=== PATIENT | female | born 1975 | race Caucasian/White ===

== ENCOUNTER → 2018-12-29 08:38 | Outpatient (CLI) | payer OTHER, SELFPAY | PROVIDERS: Visit Provider Physician Assistant | DX: R68.89 Other general symptoms and signs (principal) | CPT/HCPCS: 87400 ==

== ENCOUNTER → 2020-11-01 08:14 | Outpatient (CLI) | payer OTHER, SELFPAY ==
[2020-11-01 09:21] LABS: Hematocrit 39.8 % (36-46); Hemoglobin 12.9 g/dL (12.0-16.0); Mean Corpuscular HGB Conc 32.3 % (30-36); Mean Corpuscular Hemoglobin 27.8 PG (26-34); Platelet Count 281 X10^3/uL (150-400); Red Blood Cell Count 4.63 X10^6/uL (4.0-5.2); Red Cell Distribution Width 14.1 % (11.6-14.8); White Blood Cell Count 6.8 X10^3/uL (4.5-11.0)
[2020-11-01 09:53] LABS: Alanine Aminotransferase 21 IU/L (<35); Albumin 4.4 g/dL (3.5-5.0); Albumin Globulin Ratio 1.1 (1.0-2.8); Alkaline Phosphatase 89 U/L (38-126); Aspartate Aminotransferase 29 IU/L (14-36); BUN Creatinine Ratio 16.9 (6-22); Bilirubin Total 0.6 mg/dL (0.2-1.3); Blood Urea Nitrogen 12 mg/dL (7-17); Calcium 8.9 mg/dL (8.4-10.2); Carbon Dioxide 31 mmol/L (22-32); Chloride 101 mmol/L (98-107); Cholesterol 216 mg/dL (140-199); Estimated Glomerular Filt Rate > 60.0 mL/min (>60); Globulin 3.9 g/dL (1.7-4.1); Glucose 103 mg/dL (70-100); HDL Cholesterol 59 mg/dL (40-60); HEMOLYSIS 19 (0-50); LDL Cholesterol Calculated 138 mg/dL (<100); Potassium 3.9 mmol/L (3.4-5.1); Sodium 138 mmol/L (137-145); Total Protein 8.3 g/dL (6.3-8.2); Triglycerides 95 mg/dL (35-150)
[2020-11-01 10:24] LABS: TSH w/ Reflex to FT4 0.82 uIU/mL (0.47-4.68)
== END ==
PROVIDERS: PCP Registered Nurse Diabetes Educator; Referring Provider Registered Nurse Diabetes Educator; Visit Provider Registered Nurse Diabetes Educator
DX: E66.9 Obesity, unspecified (principal); I10 Essential (primary) hypertension
CPT/HCPCS: 36415; 80053; 80061; 84443; 85027

== ENCOUNTER → 2021-01-28 08:51 | Outpatient (CLI) | payer OTHER, SELFPAY ==
[2021-01-28 11:14] LABS: BUN Creatinine Ratio 12.8 (6-22); Blood Urea Nitrogen 12 mg/dL (7-17); Calcium 10.1 mg/dL (8.4-10.2); Carbon Dioxide 28 mmol/L (22-32); Chloride 99 mmol/L (98-107); Estimated Glomerular Filt Rate > 60.0 mL/min (>60); Glucose 128 mg/dL (70-100); HEMOLYSIS < 15 (0-50); Potassium 3.8 mmol/L (3.4-5.1); Sodium 138 mmol/L (137-145)
== END ==
PROVIDERS: PCP Registered Nurse Diabetes Educator; Referring Provider Registered Nurse Diabetes Educator; Visit Provider Registered Nurse Diabetes Educator
DX: I10 Essential (primary) hypertension (principal)
CPT/HCPCS: 36415; 80048

== ENCOUNTER → 2022-04-26 07:07 | Outpatient (CLI) | payer OTHER, SELFPAY ==
[2022-04-26 08:01] LABS: Hemoglobin 12.7 g/dL (12.0-16.0); Mean Corpuscular HGB Conc 33.3 % (30-36); Mean Corpuscular Hemoglobin 29.1 PG (26-34); Mean Corpuscular Volume 87.2 fL (80-100); Platelet Count 285 X10^3/uL (150-400); Red Blood Cell Count 4.36 X10^6/uL (4.0-5.2); Red Cell Distribution Width 14.3 % (11.6-14.8)
[2022-04-26 08:25] LABS: Alanine Aminotransferase 18 IU/L (<35); Albumin 4.5 g/dL (3.5-5.0); Albumin Globulin Ratio 1.5 (1.0-2.8); Alkaline Phosphatase 82 U/L (38-126); Aspartate Aminotransferase 26 IU/L (14-36); BUN Creatinine Ratio 15.3 (6-22); Bilirubin Total 0.6 mg/dL (0.2-1.3); Blood Urea Nitrogen 13 mg/dL (7-17); Calcium 9.3 mg/dL (8.4-10.2); Carbon Dioxide 31 mmol/L (22-32); Chloride 98 mmol/L (98-107); Cholesterol 207 mg/dL (140-199); Estimated Glomerular Filt Rate > 60 mL/min (>60); Glucose 105 mg/dL (70-100); HDL Cholesterol 77 mg/dL (40-60); HEMOLYSIS < 15 (0-50); LDL Cholesterol Calculated 106 mg/dL (<100); Potassium 3.5 mmol/L (3.4-5.1); Sodium 137 mmol/L (137-145); Total Protein 7.5 g/dL (6.3-8.2); Triglycerides 122 mg/dL (35-150)
[2022-04-26 09:25] LABS: TSH w/ Reflex to FT4 1.58 uIU/mL (0.47-4.68)
== END ==
PROVIDERS: PCP Registered Nurse Diabetes Educator; Referring Provider Registered Nurse Diabetes Educator; Visit Provider Registered Nurse Diabetes Educator
DX: I10 Essential (primary) hypertension (principal); E78.5 Hyperlipidemia, unspecified; R73.01 Impaired fasting glucose
CPT/HCPCS: 36415; 80053; 80061; 84443; 85027

== ENCOUNTER → 2023-05-03 07:01 | Outpatient (CLI) | payer OTHER, SELFPAY ==
[2023-05-03 07:59] LABS: Hematocrit 36.2 % (36-46); Hemoglobin 12.1 g/dL (12.0-16.0); Mean Corpuscular HGB Conc 33.4 % (30-36); Mean Corpuscular Hemoglobin 28.7 PG (26-34); Platelet Count 316 X10^3/uL (150-400); Red Blood Cell Count 4.21 X10^6/uL (4.0-5.2); Red Cell Distribution Width 15.4 % (11.6-14.8); White Blood Cell Count 7.3 X10^3/uL (4.5-11.0)
[2023-05-03 08:25] LABS: Alanine Aminotransferase 22 IU/L (<35); Albumin 4.1 g/dL (3.5-5.0); Albumin Globulin Ratio 1.3 (1.0-2.8); Alkaline Phosphatase 84 U/L (38-126); Aspartate Aminotransferase 24 IU/L (14-36); BUN Creatinine Ratio 15.7 (6-22); Bilirubin Total 0.5 mg/dL (0.2-1.3); Blood Urea Nitrogen 17 mg/dL (7-17); Calcium 9.2 mg/dL (8.4-10.2); Carbon Dioxide 32 mmol/L (22-32); Chloride 96 mmol/L (98-107); Cholesterol 178 mg/dL (140-199); Estimated Glomerular Filt Rate > 60 mL/min (>60); Globulin 3.2 g/dL (1.7-4.1); Glucose 97 mg/dL (70-100); HDL Cholesterol 66 mg/dL (40-60); HEMOLYSIS < 15 (0-50); LDL Cholesterol Calculated 92 mg/dL (<100); Sodium 136 mmol/L (137-145); Total Protein 7.3 g/dL (6.3-8.2); Triglycerides 98 mg/dL (35-150)
[2023-05-03 08:59] LABS: TSH w/ Reflex to FT4 1.26 uIU/mL (0.47-4.68)
[2023-05-04 04:09] LABS: Labcorp Hemoglobin (Hb) A1c 5.9 % (4.8-5.6)
== END ==
PROVIDERS: PCP Registered Nurse Diabetes Educator; Referring Provider Registered Nurse Diabetes Educator; Visit Provider Registered Nurse Diabetes Educator
DX: E78.5 Hyperlipidemia, unspecified (principal); I10 Essential (primary) hypertension; R73.01 Impaired fasting glucose
CPT/HCPCS: 36415; 80053; 80061; 83036; 84443; 85027

== ENCOUNTER 2025-05-18 16:09 | Emergency (ER) | payer OTHER, SELFPAY ==
[2025-05-18 16:32] VITALS: BP 125/79; PULSE 80; RESP 16; TEMP 36.8; O2SAT 100; BMI 24.7
--- NOTE | 2025-05-18 17:21 | EKG_ITS ---
[id number] [address] Test Date: 2025-05-18 Pat Name: Azucena Alcantar Department: [facility] Room: Gender: Female [employer]: : 1975 Requested By: Order Number: [id number] Reading MD: Jonathan Little Measurements Intervals [place] Rate: 75 P: 41 [place]: 138 QRS: 24 QRSD: 88 T: 47 QT: 386 QTc: 431 Interpretive Statements Normal sinus rhythm Electronically Signed On 05-20-2025 13:36:07 PDT by Jonathan Little
--- NOTE | 2025-05-18 17:21 | DI.RAD.S_ITS ---
PROCEDURE: XR CHEST 1V INDICATIONS: Chest Pain TECHNIQUE: One view of the chest was acquired. COMPARISON: None. FINDINGS: Surgical changes and devices: None. Lungs and pleura: Lungs are clear. No pleural effusions or pneumothorax. Mediastinum: Mediastinal contours appear normal. Heart size is normal. Bones and chest wall: No suspicious bony lesions. Overlying soft tissues appear unremarkable. IMPRESSION: No acute cardiopulmonary abnormality is seen. Dictated by: Tanner Mahajan M.D. on 05/18/2025 at 18:00 Approved by: Tanner Mahajan M.D. on 05/18/2025 at 18:01
--- NOTE | 2025-05-19 06:17 | ED_ITS ---
HPI - Dizziness General Chief Complaint: Dizziness Stated Complaint: headache,syncope ,blurry vision, ear ringing Time Seen by Provider: 05/18/25 18:03 Related Data Home Medications ?Medication ?Instructions ?Recorded ?Confirmed bimatoprost 0.03 % drops with 1 applic topical DAILY 0 05/18/25 05/18/25 applicator, eyelash base Previous Rx's ?Medication ?Instructions ?Recorded valsartan 320 1 tab PO DAILY #90 tabs 05/04 04/25 mg-hydrochlorothiazide 25 mg tablet semaglutide (weight loss) 0.25 0.25 mg (0.5 mL) SUBCUT QWEEK #2 mL 05/08/23 mg/0.5 mL subcutaneous pen injector Allergies Allergy/AdvReac Type Severity Reaction Status Date / Time No Known Drug Allergies Allergy Verified 05/18/25 09:08 Patient History Medical History Anxiety Binge eating disorder Chicken pox (~1981) Depression (~2009) Dyslipidemia History of skin cancer (~2003) Hypertension Impaired fasting blood sugar Obesity Surgical History Anesthesia History of ankle surgery (~2005) History of section (~2009) Family History Father Skin cancer Hypertension Mother Hypertension Rheumatoid arthritis Sister Hypertension Grandfather Stroke Grandmother Cancer Grandfather Cancer Smoking Status: Never smoker Exam Initial Vital Signs Initial Vital Signs: Vital Signs Temperature 98.2 F 05/18/25 16:32 Pulse Rate 80 05/18/25 16:32 Respiratory Rate 16 05/18/25 16:32 Blood Pressure 125/79 05/18/25 16:32 Pulse Oximetry 100 05/18/25 16:32 Oxygen Delivery Method Room Air 05/18/25 16:32 Course Orders Ordered: Discontinued Medications Aspirin (Aspirin 81 Mg Chew Tab) 324 mg PO NOW ONE Stop: 05/18/25 17:21 Lactated Ringer's (Lactated Ringers) 1,000 mls @ 1,000 mls/hr IV BOLUS ONE Stop: 05/18/25 19:13 Discharge Plan Departure Patient Disposition: Left Without Being Seen Clinical Impression: Patient left before evaluation by physician Prescriptions: No Action bimatoprost 0.03 % drops with applicator 1 applic topical DAILY semaglutide (weight loss) 0.25 mg/0.5 mL pen injector 0.25 mg SUBCUT QWEEK Qty: 2 3RF Rx Instructions: administer 0.25 mg once weekly x 4 weeks; increase dose to 0.5 mg once weekly after 4 weeks valsartan-hydrochlorothiazide 320-25 mg tablet 1 tab PO DAILY Qty: 90 3RF
== END 2025-05-18 19:50 | disposition left against medical advice (07) ==
PROVIDERS: Emergency Provider Family Medicine; PCP Registered Nurse Diabetes Educator
DX: R42 Dizziness and giddiness (principal); R51.9 Headache, unspecified; H53.8 Other visual disturbances; R55 Syncope and collapse
CPT/HCPCS: 71045; 93005; 99281

== ENCOUNTER 2025-05-19 08:38 | Emergency (ER) | payer OTHER, SELFPAY ==
[2025-05-19] VITALS (32 sets, daily range): BP systolic 99–160; BP diastolic 57–93; PULSE 69–92; RESP 10–28; TEMP 36.3; O2SAT 93–100; BMI 24.7
--- NOTE | 2025-05-19 09:04 | DI.CT.S_ITS ---
PROCEDURE: CT ANGIO HEAD AND NECK INDICATIONS: Dizzy/ataxia TECHNIQUE: After the administration of intravenous contrast, 1 mm thick sections acquired from the aortic arch through the [place] of [place]. 3-dimensional xfojggf-qufyalzea-ytanvviltz (MIP) and/or volume rendering reformats were acquired of the central intracranial vasculature and neck separately. For radiation dose reduction, the following was used: automated exposure control, adjustment of mA and/or kV according to patient size. COMPARISON: [facility], CT, CT HEAD/BRAIN WO CON, 05/19/2025, 9:10. FINDINGS: Image quality: Image quality degraded by patient motion artifact. Cerebral CT Angiogram: Internal carotid arteries: No acute findings. Intracranial ICA are patent with no significant stenosis. No occlusion. No aneurysm. Anterior cerebral arteries: Unremarkable. No significant stenosis. No occlusion. No aneurysm. Middle cerebral arteries: Unremarkable. No significant stenosis. No occlusion. No aneurysm. Posterior cerebral arteries: Unremarkable. No significant stenosis. No occlusion. No aneurysm. Basilar artery: Unremarkable. No significant stenosis. No occlusion. No aneurysm. Vertebral arteries: Unremarkable as visualized. Dural venous sinuses: Unremarkable given phase of enhancement. Other: 9 millimeter hyperdense lesion in the medial aspect of the right cerebellar hemisphere may represent of a cavernous angioma. Central hypoattenuating lesion involving the cervical medullary junction of the brainstem and upper spinal cord that could represent of syrinx, infarct or cystic/necrotic mass. Neck CT Angiogram: Internal carotid arteries: Unremarkable. No significant stenosis. No dissection or occlusion. Common carotid arteries: Unremarkable. No significant stenosis. No dissection or occlusion. External carotid arteries: Unremarkable. No occlusion. Vertebral arteries: Unremarkable. No significant stenosis. No dissection or occlusion. Aortic Arch and Mediastinum: Partially visualized aortic arch unremarkable without evidence of aneurysm. Origins of the great vessels unremarkable. Other: Arterial phase soft tissues of the neck and chest are unremarkable. IMPRESSION: Image quality degraded by patient motion artifact. No large vessel occlusion, significant vascular stenosis, vascular dissection or aneurysm within limitations of the study. 9 millimeter hyperdense lesion in the right cerebellar hemisphere which may represent a cavernous angioma. Recommend MRI of the brain with without contrast. Hypoattenuating lesion involving the cervicomedullary junction of the brainstem/spinal cord which could reflect syrinx, infarct or cystic/necrotic mass. Recommend MRI of the brain with and without contrast. Any quantitative measurements of stenosis were performed using NASCET criteria. Dictated by: Vashti Mir MD, PhD on 05/19/2025 at 9:32 Approved by: Vashti Mir MD, PhD on 05/19/2025 at 9:42
--- NOTE | 2025-05-19 09:04 | DI.CT.S_ITS ---
PROCEDURE: CT HEAD/BRAIN WO CON INDICATIONS: Dizzy/ataxia TECHNIQUE: Noncontrast 4.5 mm thick angled axial sections acquired from the foramen magnum to the vertex, with coronal and sagittal reformats. For radiation dose reduction, the following was used: automated exposure control, adjustment of mA and/or kV according to patient size. COMPARISON: None. FINDINGS: Image quality: Diagnostic. CSF spaces: Basal cisterns are patent. No extra-axial fluid collections. Ventricles are prominent in size. Brain: No midline shift. No intracranial mass effect or hemorrhage. Mild periventricular white matter small vessel chronic ischemic changes are seen. Hallman-white matter interface is normal. Focal calcification within medial aspect of right cerebellum adjacent to the 4th ventricle is seen. Skull and face: Calvarium and visualized facial bones are intact, without suspicious lesions. Sinuses: Visualized sinuses and mastoids are clear. IMPRESSION: No acute intracranial bleed or midline shift. Prominent size of the ventricles which can be seen associated with normal pressure hydrocephalus suggest clinical correlation. Mild white matter small vessel chronic ischemic changes. Focal calcification in right cerebellum which may represent sequelae from old infection or ischemia. Dictated by: Neil Caba M.D. on 05/19/2025 at 8:30 Approved by: Neil Caba M.D. on 05/19/2025 at 8:33
--- NOTE | 2025-05-19 09:04 | EKG_ITS ---
[address] [address] Test Date: 2025-05-19 Pat Name: Azucena Alcantar Department: Room: Gender: Female [employer]: DENIS : 1975 Requested By: Order Number: [id number] Reading MD: Jonathan Little Measurements Intervals [place] Rate: 77 P: 47 ND: 154 QRS: 40 QRSD: 90 T: 71 QT: 380 QTc: 430 Interpretive Statements Normal sinus rhythm Minimal voltage criteria for LVH, may be normal variant ( [place] product ) Electronically Signed On 05-20-2025 13:45:15 PDT by Jonathan Little
--- NOTE | 2025-05-19 09:07 | ED.DIZZY ---
HPI - Dizziness <Braulio Thayer MD - Last Filed: 06/02/25 09:09> General Chief Complaint: Dizziness Stated Complaint: Blurry vision, headaches, Loss of consciousness Time Seen by Provider: 05/19/25 08:43 Source: patient Mode of arrival: Ambulatory History of Present Illness HPI Narrative: Patient here for off and on episodes of dizziness occipital headache pulsating sensation to the ears, feeling off balance for the past 3 or 4 weeks. Worsening in the past 4 days. No chest pain no palpitations. No prior history of heart attack strokes or diabetes. No history arrhythmia. No primary family history of stroke. Patient in no distress. Steady self gait from waiting to room 4. No recent illness. No black or bloody stools. No nausea or vomiting. No prior history of migraine headaches. No new medications. Related Data Home Medications ?Medication ?Instructions ?Recorded ?Confirmed bimatoprost 0.03 % drops with 1 applic topical DAILY 05/18/25 06/01/25 applicator, eyelash base Held on 05/22/25. Instructions: Provider's Order acetaminophen 325 mg capsule 650 mg PO ONCE PRN 05/31/25 06/01/25 bisacodyl 10 mg rectal suppository 10 mg MI DAILY PRN 05/31/25 06/01/25 (Dulcolax (bisacodyl)) bisacodyl 5 mg tablet,delayed 10 mg PO ONCE 05/31/25 06/01/25 release carboxymethylcellulose sodium 0.5 drp EYE-BOTH 05/31/25 06/01/25 % eye drops (Refresh Tears) chlorpromazine 25 mg tablet 25 mg PO TID PRN 05/31/25 06/01/25 melatonin 3 mg tablet 3 mg PO BEDTIME PRN 05/31/25 06/01/25 methocarbamol 500 mg tablet 500 mg PO Q6H 05/31/25 06/01/25 ondansetron HCl 4 mg tablet 4 mg PO Q8H 05/31/25 06/01/25 oxycodone 5 mg tablet 5 mg PO Q4H PRN 05/31/25 06/01/25 pantoprazole 20 mg tablet,delayed 20 mg PO DAILY 05/31/25 06/01/25 release polyethylene glycol 3350 17 17 g PO DAILY 05/31/25 06/01/25 gram/dose oral powder sennosides 8.6 mg capsule (senna) 8.6 mg PO BID 05/31/25 06/01/25 Thyroid Support-Pure PO 06/01/25 06/01/25 Vitamin E PO 06/01/25 06/01/25 potassium chloride 20 mEq 20 meq PO DAILY 06/01/25 06/01/25 tablet,extended release Previous Rx's ?Medication ?Instructions ?Recorded valsartan 320 1 tab PO DAILY #90 tabs 05/19/22 mg-hydrochlorothiazide 25 mg tablet semaglutide (weight loss) 0.25 0.25 mg (0.5 mL) SUBCUT QWEEK #2 mL 05/08/23 mg/0.5 mL subcutaneous pen injector Held on 05/31/25. Instructions: Home Medication placed on hold at Doctor's office Allergies Allergy/AdvReac Type Severity Reaction Status Date / Time No Known Drug Allergies Allergy Verified 05/18/25 09:08 Review of Systems <Braulio Thayer MD - Last Filed: 06/02/25 09:09> Review of Systems Narrative: GENERAL: Negative chills, fatigue, malaise, fever, sweats. HEENT: Negative sinus pain, ear pain, sore throat RESPIRATORY: Negative dyspnea, cough CARDIOVASCULAR: Negative chest pain, palpitations GASTROINTESTINAL: Negative vomiting, nausea, abdominal pain : Negative dysuria, frequency, hematuria MUSCULOSKELETAL: Negative muscle or bony pain SKIN: Negative rash, skin lesions NEUROLOGIC: Negative weakness, numbness fast exam is negative. Finger-nose intact. Clear speech no facial droop light touch intact to bilateral face hands and legs ROS Unobtainable: All systems reviewed & are unremarkable except as noted in HPI and below Patient History <Braulio Thayer MD - Last Filed: 06/02/25 09:09> Medical History Anxiety Binge eating disorder Chicken pox (~1981) Depression (~2009) Dyslipidemia History of skin cancer (~2003) Hypertension Impaired fasting blood sugar Obesity Surgical History Anesthesia History of ankle surgery (~2005) History of section (~2009) Family History Father Skin cancer Hypertension Mother Hypertension Rheumatoid arthritis Sister Hypertension Grandfather Stroke Grandmother Cancer Grandfather Cancer Exam <Braulio Thayer MD - Last Filed: 06/02/25 09:09> Narrative Exam Narrative: GENERAL: in no distress, not toxic not dyspneic HEAD: Normocephalic. EYES: Pupils equal round ENT: Mucous membranes moist. NECK: Trachea midline. CARDIOVASCULAR: Regular rate and rhythm RESPIRATORY: Clear to auscultation. Breath sounds equal bilaterally. No wheezes, rales, or rhonchi. GASTROINTESTINAL: Abdomen soft, non-tender EXTREMITIES: No gross deformities. BACK: No flank tenderness. NEURO: AOx4. Clear speech no facial droop light touch intact bilateral face hands and legs. Strong equal protection mgr. Fast exam is negative SKIN: Warm and dry PSYCH: Not anxious, is cooperative Initial Vital Signs Initial Vital Signs: Vital Signs Pulse Rate 81 05/19/25 08:42 Blood Pressure 125/87 05/19/25 08:42 Pulse Oximetry 99 05/19/25 08:42 <Praneeth Thapa MD - Last Filed: 05/19/25 19:21> Initial Vital Signs Initial Vital Signs: Vital Signs Pulse Rate 81 05/19/25 08:42 Blood Pressure 125/87 05/19/25 08:42 Pulse Oximetry 99 05/19/25 08:42 <Star Antonio DO - Last Filed: 05/21/25 08:37> Initial Vital Signs Initial Vital Signs: Vital Signs Pulse Rate 81 05/19/25 08:42 Blood Pressure 125/87 05/19/25 08:42 Pulse Oximetry 99 05/19/25 08:42 <Luis Raya MD - Last Filed: 05/22/25 15:52> Initial Vital Signs Initial Vital Signs: Vital Signs Pulse Rate 81 05/19/25 08:42 Blood Pressure 125/87 05/19/25 08:42 Pulse Oximetry 99 05/19/25 08:42 Scores <Braulio Thayer MD - Last Filed: 06/02/25 09:09> NIH Stroke Scale Level of Conciousness: Alert, keenly responsive Ask month/age: Answers both questions correctly. Open/close eyes, close hand: Performs both tasks correctly Best gaze horizontal: Normal Visual [place]: No visual loss Facial palsy: Normal symetrical movement Left arm drift: No drift for full 10 sec Right arm drift: No drift for full 10 sec Left leg drift: No drift for full 5 sec Right leg drift: No drift for full 5 sec Limb ataxia: Absent Sensory on face/arms/legs: Normal, no sensory loss Best language: No aphasia, normal Dysarthria: Normal Extinction or inattention: No abnormality Total NIH Stroke scale score: 0 <Praneeth Thapa MD - Last Filed: 05/19/25 19:21> NIH Stroke Scale Total NIH Stroke scale score: 0 <Star Antonio DO - Last Filed: 05/21/25 08:37> NIH Stroke Scale Total NIH Stroke scale score: 0 <Luis Raya MD - Last Filed: 05/22/25 15:52> NIH Stroke Scale Total NIH Stroke scale score: 0 Course <Braulio Thayer MD - Last Filed: 06/02/25 09:09> Orders Ordered: Discontinued Medications Acetaminophen (Acetaminophen 325 Mg Tablet) 975 mg PO NOW ONE Stop: 05/19/25 14:37 Last Admin: 05/19/25 14:40 Dose: 975 mg Documented By: MARYAM Acetaminophen (Acetaminophen 325 Mg Tablet) 975 mg PO NOW ONE Stop: 05/20/25 10:36 Last Admin: 05/20/25 10:40 Dose: 975 mg Documented By: TRACY Acetaminophen (Acetaminophen 325 Mg Tablet) 975 mg PO Q8HR PRN PRN Reason: Pain, Mild (1-3) Last Admin: 05/22/25 19:58 Dose: 975 mg Documented By: Admin: 05/22/25 08:56 Dose: 975 mg Documented By: Admin: 05/21/25 07:55 Dose: 975 mg Documented By: Admin: 05/20/25 18:21 Dose: 975 mg Documented By: CORNELL Alprazolam (Alprazolam 0.25 Mg Tablet) 0.5 mg PO NOW ONE Stop: 05/19/25 17:45 Last Admin: 05/19/25 17:50 Dose: 0.5 mg Documented By: MARYAM Alprazolam (Alprazolam 0.25 Mg Tablet) 0.5 mg PO NOW ONE Stop: 05/20/25 07:34 Last Admin: 05/20/25 07:46 Dose: 0.5 mg Documented By: TRACY Alprazolam (Alprazolam 0.25 Mg Tablet) 0.25 mg PO NOW ONE Stop: 05/21/25 02:11 Last Admin: 05/21/25 02:27 Dose: 0.25 mg Documented By: Alprazolam (Alprazolam 0.25 Mg Tablet) 0.25 mg PO NOW ONE Stop: 05/21/25 02:25 Last Admin: 05/21/25 02:28 Dose: 0.25 mg Documented By: Alprazolam (Alprazolam 0.25 Mg Tablet) 0.5 mg PO Q6H PRN PRN Reason: Anxiety Last Admin: 05/22/25 18:53 Dose: 0.5 mg Documented By: Admin: 05/22/25 10:35 Dose: 0.5 mg Documented By: Admin: 05/21/25 22:43 Dose: 0.5 mg Documented By: Admin: 05/21/25 12:40 Dose: 0.5 mg Documented By: LEE Alprazolam (Alprazolam 0.25 Mg Tablet) 1 mg PO NOW ONE Stop: 05/22/25 16:35 Last Admin: 05/22/25 19:01 Dose: Not Given Documented By: LEE Cefdinir (Cefdinir 300 Mg Capsule) 300 mg PO NOW ONE Stop: 05/20/25 08:41 Last Admin: 05/20/25 08:48 Dose: 300 mg Documented By: TRACY Cefdinir (Cefdinir 300 Mg Capsule) 300 mg PO BID RAMY Last Admin: 05/22/25 08:55 Dose: 300 mg Documented By: Admin: 05/21/25 21:37 Dose: 300 mg Documented By: Admin: 05/21/25 08:03 Dose: 300 mg Documented By: Admin: 05/20/25 21:15 Dose: 300 mg Documented By: CORNELL Cephalexin HCl (Cephalexin 250 Mg Capsule) 500 mg PO BID RAMY Cephalexin HCl (Cephalexin 250 Mg Capsule) 500 mg PO BID RAMY Last Admin: 05/19/25 21:47 Dose: Not Given Documented By: Admin: 05/19/25 19:41 Dose: 500 mg Documented By: Sodium Chloride (Normal Saline 0.9%) 1,000 mls @ 1,000 mls/hr IV BOLUS ONE Stop: 05/19/25 10:05 Last Infusion: 05/19/25 11:27 Dose: Infused Documented By: Admin: 05/19/25 09:26 Dose: 1,000 mls/hr Documented By: MARYAM Sodium Chloride (Normal Saline 0.9%) 1,000 mls @ 500 mls/hr IV BOLUS ONE Stop: 05/22/25 15:56 Last Infusion: 05/22/25 18:15 Dose: Infused Documented By: Admin: 05/22/25 14:04 Dose: 500 mls/hr Documented By: RB Morphine Sulfate (Morphine 4 Mg/Ml Inj) 4 mg IV NOW ONE Stop: 05/21/25 14:41 Last Admin: 05/21/25 14:43 Dose: 4 mg Documented By: LEE Non-Formulary Medication (Valsartan-Hctz) 1 tab PO QPM RAMY Valsartan-Hctz 320 (Mg/25 Mg Tab) 1 tab PO BEDTIME RAMY Vital Signs Vital signs: Vital Signs - 8 hr 05/22/25 11:37 05/22/25 11:38 05/22/25 11:38 Temperature 98.2 F Pulse Rate 91 H 85 Blood Pressure 125/85 Pulse Oximetry 98 97 Oxygen Delivery Method 05/22/25 14:05 05/22/25 14:05 Temperature 98.3 F Pulse Rate 90 Blood Pressure 120/68 Pulse Oximetry 97 Oxygen Delivery Method Room Air <Praneeth Thapa MD - Last Filed: 05/19/25 19:21> Orders Ordered: Discontinued Medications Acetaminophen (Acetaminophen 325 Mg Tablet) 975 mg PO NOW ONE Stop: 05/19/25 14:37 Last Admin: 05/19/25 14:40 Dose: 975 mg Documented By: MARYAM Acetaminophen (Acetaminophen 325 Mg Tablet) 975 mg PO NOW ONE Stop: 05/20/25 10:36 Last Admin: 05/20/25 10:40 Dose: 975 mg Documented By: TRACY Acetaminophen (Acetaminophen 325 Mg Tablet) 975 mg PO Q8HR PRN PRN Reason: Pain, Mild (1-3) Last Admin: 05/22/25 19:58 Dose: 975 mg Documented By: Admin: 05/22/25 08:56 Dose: 975 mg Documented By: Admin: 05/21/25 07:55 Dose: 975 mg Documented By: Admin: 05/20/25 18:21 Dose: 975 mg Documented By: CORNELL Alprazolam (Alprazolam 0.25 Mg Tablet) 0.5 mg PO NOW ONE Stop: 05/19/25 17:45 Last Admin: 05/19/25 17:50 Dose: 0.5 mg Documented By: MARYAM Alprazolam (Alprazolam 0.25 Mg Tablet) 0.5 mg PO NOW ONE Stop: 05/20/25 07:34 Last Admin: 05/20/25 07:46 Dose: 0.5 mg Documented By: TRACY Alprazolam (Alprazolam 0.25 Mg Tablet) 0.25 mg PO NOW ONE Stop: 05/21/25 02:11 Last Admin: 05/21/25 02:27 Dose: 0.25 mg Documented By: Alprazolam (Alprazolam 0.25 Mg Tablet) 0.25 mg PO NOW ONE Stop: 05/21/25 02:25 Last Admin: 05/21/25 02:28 Dose: 0.25 mg Documented By: Alprazolam (Alprazolam 0.25 Mg Tablet) 0.5 mg PO Q6H PRN PRN Reason: Anxiety Last Admin: 05/22/25 18:53 Dose: 0.5 mg Documented By: Admin: 05/22/25 10:35 Dose: 0.5 mg Documented By: Admin: 05/21/25 22:43 Dose: 0.5 mg Documented By: Admin: 05/21/25 12:40 Dose: 0.5 mg Documented By: LEE Alprazolam (Alprazolam 0.25 Mg Tablet) 1 mg PO NOW ONE Stop: 05/22/25 16:35 Last Admin: 05/22/25 19:01 Dose: Not Given Documented By: LEE Cefdinir (Cefdinir 300 Mg Capsule) 300 mg PO NOW ONE Stop: 05/20/25 08:41 Last Admin: 05/20/25 08:48 Dose: 300 mg Documented By: TRACY Cefdinir (Cefdinir 300 Mg Capsule) 300 mg PO BID [facility] Last Admin: 05/22/25 08:55 Dose: 300 mg Documented By: Admin: 05/21/25 21:37 Dose: 300 mg Documented By: Admin: 05/21/25 08:03 Dose: 300 mg Documented By: Admin: 05/20/25 21:15 Dose: 300 mg Documented By: CORNELL Cephalexin HCl (Cephalexin 250 Mg Capsule) 500 mg PO BID RAMY Cephalexin HCl (Cephalexin 250 Mg Capsule) 500 mg PO BID RAMY Last Admin: 05/19/25 21:47 Dose: Not Given Documented By: Admin: 05/19/25 19:41 Dose: 500 mg Documented By: Sodium Chloride (Normal Saline 0.9%) 1,000 mls @ 1,000 mls/hr IV BOLUS ONE Stop: 05/19/25 10:05 Last Infusion: 05/19/25 11:27 Dose: Infused Documented By: Admin: 05/19/25 09:26 Dose: 1,000 mls/hr Documented By: MARYAM Sodium Chloride (Normal Saline 0.9%) 1,000 mls @ 500 mls/hr IV BOLUS ONE Stop: 05/22/25 15:56 Last Infusion: 05/22/25 18:15 Dose: Infused Documented By: Admin: 05/22/25 14:04 Dose: 500 mls/hr Documented By: LEE Morphine Sulfate (Morphine 4 Mg/Ml Inj) 4 mg IV NOW ONE Stop: 05/21/25 14:41 Last Admin: 05/21/25 14:43 Dose: 4 mg Documented By: LEE Non-Formulary Medication (Valsartan-Hctz) 1 tab PO QPM [facility] Valsartan-Hctz 320 (Mg/25 Mg Tab) 1 tab PO BEDTIME [facility] Vital Signs Vital signs: Vital Signs - 8 hr 05/22/25 11:37 05/22/25 11:38 05/22/25 11:38 Temperature 98.2 F Pulse Rate 91 H 85 Blood Pressure 125/85 Pulse Oximetry 98 97 Oxygen Delivery Method 05/22/25 14:05 05/22/25 14:05 Temperature 98.3 F Pulse Rate 90 Blood Pressure 120/68 Pulse Oximetry 97 Oxygen Delivery Method Room Air <Star Antonio DO - Last Filed: 05/21/25 08:37> Orders Ordered: Discontinued Medications Acetaminophen (Acetaminophen 325 Mg Tablet) 975 mg PO NOW ONE Stop: 05/19/25 14:37 Last Admin: 05/19/25 14:40 Dose: 975 mg Documented By: MARYAM Acetaminophen (Acetaminophen 325 Mg Tablet) 975 mg PO NOW ONE Stop: 05/20/25 10:36 Last Admin: 05/20/25 10:40 Dose: 975 mg Documented By: TRACY Acetaminophen (Acetaminophen 325 Mg Tablet) 975 mg PO Q8HR PRN PRN Reason: Pain, Mild (1-3) Last Admin: 05/22/25 19:58 Dose: 975 mg Documented By: Admin: 05/22/25 08:56 Dose: 975 mg Documented By: Admin: 05/21/25 07:55 Dose: 975 mg Documented By: Admin: 05/20/25 18:21 Dose: 975 mg Documented By: CORNELL Alprazolam (Alprazolam 0.25 Mg Tablet) 0.5 mg PO NOW ONE Stop: 05/19/25 17:45 Last Admin: 05/19/25 17:50 Dose: 0.5 mg Documented By: MARYAM Alprazolam (Alprazolam 0.25 Mg Tablet) 0.5 mg PO NOW ONE Stop: 05/20/25 07:34 Last Admin: 05/20/25 07:46 Dose: 0.5 mg Documented By: TRACY Alprazolam (Alprazolam 0.25 Mg Tablet) 0.25 mg PO NOW ONE Stop: 05/21/25 02:11 Last Admin: 05/21/25 02:27 Dose: 0.25 mg Documented By: Alprazolam (Alprazolam 0.25 Mg Tablet) 0.25 mg PO NOW ONE Stop: 05/21/25 02:25 Last Admin: 05/21/25 02:28 Dose: 0.25 mg Documented By: Alprazolam (Alprazolam 0.25 Mg Tablet) 0.5 mg PO Q6H PRN PRN Reason: Anxiety Last Admin: 05/22/25 18:53 Dose: 0.5 mg Documented By: Admin: 05/22/25 10:35 Dose: 0.5 mg Documented By: Admin: 05/21/25 22:43 Dose: 0.5 mg Documented By: Admin: 05/21/25 12:40 Dose: 0.5 mg Documented By: LEE Alprazolam (Alprazolam 0.25 Mg Tablet) 1 mg PO NOW ONE Stop: 05/22/25 16:35 Last Admin: 05/22/25 19:01 Dose: Not Given Documented By: RB Cefdinir (Cefdinir 300 Mg Capsule) 300 mg PO NOW ONE Stop: 05/20/25 08:41 Last Admin: 05/20/25 08:48 Dose: 300 mg Documented By: TRACY Cefdinir (Cefdinir 300 Mg Capsule) 300 mg PO BID RAMY Last Admin: 05/22/25 08:55 Dose: 300 mg Documented By: Admin: 05/21/25 21:37 Dose: 300 mg Documented By: Admin: 05/21/25 08:03 Dose: 300 mg Documented By: Admin: 05/20/25 21:15 Dose: 300 mg Documented By: CORNELL Cephalexin HCl (Cephalexin 250 Mg Capsule) 500 mg PO BID RAMY Cephalexin HCl (Cephalexin 250 Mg Capsule) 500 mg PO BID RAMY Last Admin: 05/19/25 21:47 Dose: Not Given Documented By: Admin: 05/19/25 19:41 Dose: 500 mg Documented By: Sodium Chloride (Normal Saline 0.9%) 1,000 mls @ 1,000 mls/hr IV BOLUS ONE Stop: 05/19/25 10:05 Last Infusion: 05/19/25 11:27 Dose: Infused Documented By: Admin: 05/19/25 09:26 Dose: 1,000 mls/hr Documented By: MARYAM Sodium Chloride (Normal Saline 0.9%) 1,000 mls @ 500 mls/hr IV BOLUS ONE Stop: 05/22/25 15:56 Last Infusion: 05/22/25 18:15 Dose: Infused Documented By: Admin: 05/22/25 14:04 Dose: 500 mls/hr Documented By: RB Morphine Sulfate (Morphine 4 Mg/Ml Inj) 4 mg IV NOW ONE Stop: 05/21/25 14:41 Last Admin: 05/21/25 14:43 Dose: 4 mg Documented By: LEE Non-Formulary Medication (Valsartan-Hctz) 1 tab PO QPM [facility] Valsartan-Hctz 320 (Mg/25 Mg Tab) 1 tab PO BEDTIME RAMY Vital Signs Vital signs: Vital Signs - 8 hr 05/22/25 11:37 05/22/25 11:38 05/22/25 11:38 Temperature 98.2 F Pulse Rate 91 H 85 Blood Pressure 125/85 Pulse Oximetry 98 97 Oxygen Delivery Method 05/22/25 14:05 05/22/25 14:05 Temperature 98.3 F Pulse Rate 90 Blood Pressure 120/68 Pulse Oximetry 97 Oxygen Delivery Method Room Air <Luis Raya MD - Last Filed: 05/22/25 15:52> Orders Ordered: Discontinued Medications Acetaminophen (Acetaminophen 325 Mg Tablet) 975 mg PO NOW ONE Stop: 05/19/25 14:37 Last Admin: 05/19/25 14:40 Dose: 975 mg Documented By: MARYAM Acetaminophen (Acetaminophen 325 Mg Tablet) 975 mg PO NOW ONE Stop: 05/20/25 10:36 Last Admin: 05/20/25 10:40 Dose: 975 mg Documented By: TRACY Acetaminophen (Acetaminophen 325 Mg Tablet) 975 mg PO Q8HR PRN PRN Reason: Pain, Mild (1-3) Last Admin: 05/22/25 19:58 Dose: 975 mg Documented By: Admin: 05/22/25 08:56 Dose: 975 mg Documented By: Admin: 05/21/25 07:55 Dose: 975 mg Documented By: Admin: 05/20/25 18:21 Dose: 975 mg Documented By: CORNELL Alprazolam (Alprazolam 0.25 Mg Tablet) 0.5 mg PO NOW ONE Stop: 05/19/25 17:45 Last Admin: 05/19/25 17:50 Dose: 0.5 mg Documented By: MARYAM Alprazolam (Alprazolam 0.25 Mg Tablet) 0.5 mg PO NOW ONE Stop: 05/20/25 07:34 Last Admin: 05/20/25 07:46 Dose: 0.5 mg Documented By: TRACY Alprazolam (Alprazolam 0.25 Mg Tablet) 0.25 mg PO NOW ONE Stop: 05/21/25 02:11 Last Admin: 05/21/25 02:27 Dose: 0.25 mg Documented By: Alprazolam (Alprazolam 0.25 Mg Tablet) 0.25 mg PO NOW ONE Stop: 05/21/25 02:25 Last Admin: 05/21/25 02:28 Dose: 0.25 mg Documented By: Alprazolam (Alprazolam 0.25 Mg Tablet) 0.5 mg PO Q6H PRN PRN Reason: Anxiety Last Admin: 05/22/25 18:53 Dose: 0.5 mg Documented By: Admin: 05/22/25 10:35 Dose: 0.5 mg Documented By: Admin: 05/21/25 22:43 Dose: 0.5 mg Documented By: Admin: 05/21/25 12:40 Dose: 0.5 mg Documented By: RB Alprazolam (Alprazolam 0.25 Mg Tablet) 1 mg PO NOW ONE Stop: 05/22/25 16:35 Last Admin: 05/22/25 19:01 Dose: Not Given Documented By: RB Cefdinir (Cefdinir 300 Mg Capsule) 300 mg PO NOW ONE Stop: 05/20/25 08:41 Last Admin: 05/20/25 08:48 Dose: 300 mg Documented By: TRACY Cefdinir (Cefdinir 300 Mg Capsule) 300 mg PO BID RAMY Last Admin: 05/22/25 08:55 Dose: 300 mg Documented By: Admin: 05/21/25 21:37 Dose: 300 mg Documented By: Admin: 05/21/25 08:03 Dose: 300 mg Documented By: Admin: 05/20/25 21:15 Dose: 300 mg Documented By: CORNELL Cephalexin HCl (Cephalexin 250 Mg Capsule) 500 mg PO BID RAMY Cephalexin HCl (Cephalexin 250 Mg Capsule) 500 mg PO BID RAMY Last Admin: 05/19/25 21:47 Dose: Not Given Documented By: Admin: 05/19/25 19:41 Dose: 500 mg Documented By: Sodium Chloride (Normal Saline 0.9%) 1,000 mls @ 1,000 mls/hr IV BOLUS ONE Stop: 05/19/25 10:05 Last Infusion: 05/19/25 11:27 Dose: Infused Documented By: Admin: 05/19/25 09:26 Dose: 1,000 mls/hr Documented By: MARYAM Sodium Chloride (Normal Saline 0.9%) 1,000 mls @ 500 mls/hr IV BOLUS ONE Stop: 05/22/25 15:56 Last Infusion: 05/22/25 18:15 Dose: Infused Documented By: Admin: 05/22/25 14:04 Dose: 500 mls/hr Documented By: RB Morphine Sulfate (Morphine 4 Mg/Ml Inj) 4 mg IV NOW ONE Stop: 05/21/25 14:41 Last Admin: 05/21/25 14:43 Dose: 4 mg Documented By: RB Non-Formulary Medication (Valsartan-Hctz) 1 tab PO QPM RAMY Valsartan-Hctz 320 (Mg/25 Mg Tab) 1 tab PO BEDTIME RAMY Reevaluation(s) Reevaluation #1: Upon re-evaluation, patient is asymptomatic, labs were done again today which showed a little hyponatremia picture until patient was started on a a bolus of normal saline. Consultations Consultation #1: Neurosurgery Dr. Trimble was consulted over at [place] who accepted the patient for transfer. Vital Signs Vital signs: Vital Signs - 8 hr 05/22/25 11:37 05/22/25 11:38 05/22/25 11:38 Temperature 98.2 F Pulse Rate 91 H 85 Blood Pressure 125/85 Pulse Oximetry 98 97 Oxygen Delivery Method 05/22/25 14:05 05/22/25 14:05 Temperature 98.3 F Pulse Rate 90 Blood Pressure 120/68 Pulse Oximetry 97 Oxygen Delivery Method Room Air MDM - Dizziness <Braulio Thayer MD - Last Filed: 06/02/25 09:09> Lab Data 05/22/25 13:30 05/22/25 13:20 Labs: Lab Results 05/19/25 05/19/25 05/22/25 Range/Units 08:48 09:39 13:20 WBC 5.3 (4.5-11.0) X10^3/uL RBC 4.32 (4.0-5.2) X10^6/uL Hgb 13.2 (12.0-16.0) g/dL Hct 38.6 (36-46) % MCV 89.2 (80-100) fL MCH 30.5 (26-34) PG MCHC 34.2 (30-36) % RDW 13.1 (11.6-14.8) % Plt Count 281 (150-400) X10^3/uL Neut % (Auto) 56.1 (50-75) % Lymph % (Auto) 33.9 (25-40) % [place] % (Auto) 7.3 (3-14) % Eos % (Auto) 2.1 (2-4) % Baso % (Auto) 0.6 (0-2) % Neut # (Auto) 3000 (2036-7405) /uL Lymph # (Auto) 1800 (3825-5623) /uL [place] # (Auto) 400 (0-900) /uL Eos # (Auto) 100 (0-450) /uL Baso # (Auto) 0 (0-100) /uL PT 10.2 (9.4-12.5) SECONDS INR 0.9 (0.9-1.3) APTT 30 (25.1-36.5) SECONDS Sodium 134 L 131 L (137-145) mmol/L Potassium 3.1 L 3.9 (3.4-5.1) mmol/L Chloride 96 L 95 L (98-107) mmol/L Carbon Dioxide 30 29 (22-32) mmol/L BUN 14 12 (7-17) mg/dL Creatinine 0.80 0.73 (0.52-1.04) mg/dL Estimated GFR > 60 > 60 (>60) mL/min BUN/Creatinine Ratio 17.5 16.4 (6-22) Glucose 106 H 105 H (70-99) mg/dL Calcium 9.7 9.4 (8.4-10.2) mg/dL Magnesium 1.8 (1.6-2.3) mg/dL Total Bilirubin 0.7 0.7 (0.2-1.3) mg/dL AST 30 33 (14-36) IU/L ALT 16 15 (<35) IU/L Alkaline Phosphatase 57 50 (38-126) U/L Total Creatine Kinase 27 L (30-135) U/L Troponin I < 0.012 (0.01-0.034) ng/mL Total Protein 8.1 7.8 (6.3-8.2) g/dL Albumin 4.6 4.6 (3.5-5.0) g/dL Globulin 3.5 3.2 (1.7-4.1) g/dL Albumin/Globulin Ratio 1.3 1.4 (1.0-2.8) Urine Color Yellow Urine Appearance Sl cloudy Urine pH 6.5 (4.5-8.0) Ur Specific [place] 1.010 (1.000-1.035) Urine Protein Negative (Negative) Urine Glucose (UA) Negative (Negative) g/dL Urine Ketones Negative (NEGATIVE) Urine Occult Blood Trace-intact (Negative) Urine Nitrate Positive H (Negative) Urine Bilirubin Negative (NEGATIVE) Urine Urobilinogen 0.2 (0.2) E.U./dL Ur Leukocyte Esterase 3+ H (NEGATIVE) Urine RBC 0-1/hpf (0-5/HPF) Urine WBC 30-100/hpf H (0-5/HPF) Ur Squamous Epith Cells 1-5 /hpf (0-5/HPF) Urine Bacteria Many (>30) H (None) Ur Culture Indicated? Specimen cultured Vol Urine Centrifuged 10ml (spun) 05/22/25 Range/Units 13:30 WBC 10.7 (4.5-11.0) X10^3/uL RBC 4.10 (4.0-5.2) X10^6/uL Hgb 12.5 (12.0-16.0) g/dL Hct 36.4 (36-46) % MCV 88.9 (80-100) fL MCH 30.6 (26-34) PG MCHC 34.4 (30-36) % RDW 13.2 (11.6-14.8) % Plt Count 281 (150-400) X10^3/uL Neut % (Auto) 74.1 (50-75) % Lymph % (Auto) 19.3 L (25-40) % [place] % (Auto) 5.8 (3-14) % Eos % (Auto) 0.4 L (2-4) % Baso % (Auto) 0.4 (0-2) % Neut # (Auto) 7900 H (5914-1603) /uL Lymph # (Auto) 2100 (8913-5718) /uL [place] # (Auto) 600 (0-900) /uL Eos # (Auto) 0 (0-450) /uL Baso # (Auto) 0 (0-100) /uL PT (9.4-12.5) SECONDS INR (0.9-1.3) APTT (25.1-36.5) SECONDS Sodium (137-145) mmol/L Potassium (3.4-5.1) mmol/L Chloride (98-107) mmol/L Carbon Dioxide (22-32) mmol/L BUN (7-17) mg/dL Creatinine (0.52-1.04) mg/dL Estimated GFR (>60) mL/min BUN/Creatinine Ratio (6-22) Glucose (70-99) mg/dL Calcium (8.4-10.2) mg/dL Magnesium (1.6-2.3) mg/dL Total Bilirubin (0.2-1.3) mg/dL AST (14-36) IU/L ALT (<35) IU/L Alkaline Phosphatase (38-126) U/L Total Creatine Kinase (30-135) U/L Troponin I (0.01-0.034) ng/mL Total Protein (6.3-8.2) g/dL Albumin (3.5-5.0) g/dL Globulin (1.7-4.1) g/dL Albumin/Globulin Ratio (1.0-2.8) Urine Color Urine Appearance Urine pH (4.5-8.0) Ur Specific [place] (1.000-1.035) Urine Protein (Negative) Urine Glucose (UA) (Negative) g/dL Urine Ketones (NEGATIVE) Urine Occult Blood (Negative) Urine Nitrate (Negative) Urine Bilirubin (NEGATIVE) Urine Urobilinogen (0.2) E.U./dL Ur Leukocyte Esterase (NEGATIVE) Urine RBC (0-5/HPF) Urine WBC (0-5/HPF) Ur Squamous Epith Cells (0-5/HPF) Urine Bacteria (None) Ur Culture Indicated? Vol Urine Centrifuged Imaging Data CT scan - head: Radiologist's Impression: [place] [address] CT Scan Report Signed Patient: Azucena Alcantar MR#: [id number] : 1975 Acct:[id number] Age/Sex: 50 / F Date of Service: 05/19/25 Loc: ED Accession Number: [id number] Procedure: CT head/brain wo con Ordering Provider: Braulio Thayer MD PROCEDURE: CT HEAD/BRAIN WO CON INDICATIONS: Dizzy/ataxia TECHNIQUE: Noncontrast 4.5 mm thick angled axial sections acquired from the foramen magnum to the vertex, with coronal and sagittal reformats. For radiation dose reduction, the following was used: automated exposure control, adjustment of mA and/or kV according to patient size. COMPARISON: None. FINDINGS: Image quality: Diagnostic. CSF spaces: Basal cisterns are patent. No extra-axial fluid collections. Ventricles are prominent in size. Brain: No midline shift. No intracranial mass effect or hemorrhage. Mild periventricular white matter small vessel chronic ischemic changes are seen. [place]-white matter interface is normal. Focal calcification within medial aspect of right cerebellum adjacent to the 4th ventricle is seen. Skull and face: Calvarium and visualized facial bones are intact, without suspicious lesions. Sinuses: Visualized sinuses and mastoids are clear. IMPRESSION: No acute intracranial bleed or midline shift. Prominent size of the ventricles which can be seen associated with normal pressure hydrocephalus suggest clinical correlation. Mild white matter small vessel chronic ischemic changes. Focal calcification in right cerebellum which may represent sequelae from old infection or ischemia. Dictated by: Neil Caba M.D. on 05/19/2025 at 8:30 Approved by: Neil Caba M.D. on 05/19/2025 at 8:33 CTA - brain/neck: Radiologist's Impression: [place] [address] CT Scan Report Signed Patient: Azucena Alcantar MR#: [id number] : 1975 Acct:[id number] Age/Sex: 50 / F Date of Service: 05/19/25 Loc: ED Accession Number: [id number] Procedure: CT angio head and neck Ordering Provider: Braulio Thayer MD PROCEDURE: CT ANGIO HEAD AND NECK INDICATIONS: Dizzy/ataxia TECHNIQUE: After the administration of intravenous contrast, 1 mm thick sections acquired from the aortic arch through the [place]. 3-dimensional fsttsth-stnvgqswh-sgfanfhxvr (MIP) and/or volume rendering reformats were acquired of the central intracranial vasculature and neck separately. For radiation dose reduction, the following was used: automated exposure control, adjustment of mA and/or kV according to patient size. COMPARISON: [facility], CT, CT HEAD/BRAIN WO CON, 05/19/2025, 9:10. FINDINGS: Image quality: Image quality degraded by patient motion artifact. Cerebral CT Angiogram: Internal carotid arteries: No acute findings. Intracranial ICA are patent with no significant stenosis. No occlusion. No aneurysm. Anterior cerebral arteries: Unremarkable. No significant stenosis. No occlusion. No aneurysm. Middle cerebral arteries: Unremarkable. No significant stenosis. No occlusion. No aneurysm. Posterior cerebral arteries: Unremarkable. No significant stenosis. No occlusion. No aneurysm. Basilar artery: Unremarkable. No significant stenosis. No occlusion. No aneurysm. Vertebral arteries: Unremarkable as visualized. Dural venous sinuses: Unremarkable given phase of enhancement. Other: 9 millimeter hyperdense lesion in the medial aspect of the right cerebellar hemisphere may represent of a cavernous angioma. Central hypoattenuating lesion involving the cervical medullary junction of the brainstem and upper spinal cord that could represent of syrinx, infarct or cystic/necrotic mass. Neck CT Angiogram: Internal carotid arteries: Unremarkable. No significant stenosis. No dissection or occlusion. Common carotid arteries: Unremarkable. No significant stenosis. No dissection or occlusion. External carotid arteries: Unremarkable. No occlusion. Vertebral arteries: Unremarkable. No significant stenosis. No dissection or occlusion. Aortic Arch and Mediastinum: Partially visualized aortic arch unremarkable without evidence of aneurysm. Origins of the great vessels unremarkable. Other: Arterial phase soft tissues of the neck and chest are unremarkable. IMPRESSION: Image quality degraded by patient motion artifact. No large vessel occlusion, significant vascular stenosis, vascular dissection or aneurysm within limitations of the study. 9 millimeter hyperdense lesion in the right cerebellar hemisphere which may represent a cavernous angioma. Recommend MRI of the brain with without contrast. Hypoattenuating lesion involving the cervicomedullary junction of the brainstem/spinal cord which could reflect syrinx, infarct or cystic/necrotic mass. Recommend MRI of the brain with and without contrast. Any quantitative measurements of stenosis were performed using NASCET criteria. Dictated by: Vashti Mir MD, PhD on 05/19/2025 at 9:32 Approved by: Vashti Mir MD, PhD on 05/19/2025 at 9:42 MRI brain: Radiologist's Impression: [place] [address] Magnetic Resonance Report Signed Patient: Azucena Alcantar MR#: [id number] : 1975 Acct:[id number] Age/Sex: 50 / F Date of Service: 05/19/25 Loc: ED Accession Number: [id number] Procedure: MR head/brain wo/w con Ordering Provider: Braulio Thayer MD PROCEDURE: MR HEAD/BRAIN WO/W CON INDICATIONS: Dizziness/ataxia/possible stroke TECHNIQUE: Noncontrast axial T1 spin echo, axial T2 fast spin echo, sagittal and axial FLAIR, coronal T2 fast spin echo, axial gradient echo, axial diffusion and ADC through the brain. After the administration of contrast, axial and coronal and sagittal 3D VIBE or T1 spin echo with fat saturation through the brain. COMPARISON: [facility], CT, CT ANGIO HEAD AND NECK, 05/19/2025, 9:10. [facility], CT, CT HEAD/BRAIN WO CON, 05/19/2025, 9:10. FINDINGS: Image quality: Excellent. CSF Spaces: Basal cisterns are patent. No extra-axial fluid collections. Within the inferior aspect of the 4th ventricle, extending through the foramen magnum and into the upper cervical cord central canal, there is a heterogeneously enhancing high FLAIR signal intensity focus measuring 30 mm anteroposterior by 45 mm craniocaudal by 30 mm transverse. This lesion demonstrates several low gradient echo signal intensity foci, largest of which is in the right paramedian aspect of the 4th ventricle, corresponding to the abnormality seen by CT. Brain: No midline shift. 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 No acute intracranial bleeds or masses. No abnormal intracranial enhancement. The brainstem appears normal. Diffusion-weighted images demonstrate no acute infarct. No chronic ischemic insults. Normal intravascular flow voids are present. Skull and face: Calvarial marrow is normal in signal. Orbits appear normal. Sinuses: Sinuses and mastoids appear clear. IMPRESSION: 1. Lesion as described above within the 4th ventricle and upper cervical central canal, most suggestive of an ependymoma. More aggressive etiologies such as astrocytoma and glioblastoma cannot be excluded. There are associated calcifications and/or chronic hemorrhagic products within this lesion, with no evidence of acute hemorrhage. There is associated compression of the medulla. Dictated by: Jadon Thompson M.D. on 05/19/2025 at 10:59 Approved by: Jadon Thompson M.D. on 05/19/2025 at 11:13 MDM Narrative Medical decision making narrative: Patient here for off and on episodes of dizziness occipital headache pulsating sensation to the ears, feeling off balance for the past 3 or 4 weeks. Worsening in the past 4 days. No chest pain no palpitations. No prior history of heart attack strokes or diabetes. No history arrhythmia. No primary family history of stroke. Patient in no distress. Steady self gait from waiting to room 4. No recent illness. No black or bloody stools. No nausea or vomiting. No prior history of migraine headaches. No new medications. Fast exam is negative After history and exam, CT head CT angiogram head and neck EKG CBC CMP normal saline troponin urinalysis [place] Medical records reviewed: Patient is seen walk-in clinic yesterday for vertigo Differential considered: Includes but not limited to stroke TIA migraine headache vertigo Lab Test results independently reviewed as above. Pertinent findings: WBC 5.3 hemoglobin 13 hematocrit 38 INR 0.9 sodium 134 potassium 3.1 troponin less than 0.012 urinalysis positive nitrate WBC 3100 many bacteria patient has no urinary complaints Independently reviewed EKG normal sinus rhythm rate [address] elevation or depression Imaging studies independently reviewed: CT head calcification right cerebellum, CT angiogram head and neck no large vessel occlusion, there is a right cerebellar hemisphere lesion, MRI brain lesion 4th ventricle Consultations: 3:20 p.m.. Spoke with [facility] neurosurgery, dr kam, who will accept patient Re-evaluations: 3:25 p.m.. Spoke with patient and mother. The understand need for transfer. At this time uncertain etiology of MRI but neurosurgery would like her to be transferred and admitted overnight Discussion: Appropriate for transfer for higher level of care. Patient will need neurosurgical evaluation, at this time patient in no distress patient neurologically intact otherwise. Airway intact. No altered mental status Diagnosis: Ataxia 6:[address] Thayer: Sign-out to Dr Thapa, patient hemodynamically stable neurovascularly intact at this time. However patient has been accepted to [facility] through neurosurgical services. Awaiting for bed assignment. Patient and are aware. Patient may take for home meds May 20, 2025 at 7:[address] Thayer: No new events reported over night by physician or staff. Still waiting for bed assignment. 7:30 a.m.. Reviewed with patient that [facility] will be reviewing for billable bed this morning. She feels anxious and she states the Xanax helped her last night. We will order this again. 2:00 p.m.. Updated patient we are trying to reach out to [facility] for possible acceptance. 6:[address] Thayer: s/o back to dr thapa, no txr today, [facility] did call back. Level of care needs to go to [facility]. Patient is ambulatory. Not requiring DVT prophylaxis at this time. <Praneeth Thapa MD - Last Filed: 05/19/25 19:21> Lab Data Labs: Lab Results 05/19/25 05/19/25 05/22/25 Range/Units 08:48 09:39 13:20 WBC 5.3 (4.5-11.0) X10^3/uL RBC 4.32 (4.0-5.2) X10^6/uL Hgb 13.2 (12.0-16.0) g/dL Hct 38.6 (36-46) % MCV 89.2 (80-100) fL MCH 30.5 (26-34) PG MCHC 34.2 (30-36) % RDW 13.1 (11.6-14.8) % Plt Count 281 (150-400) X10^3/uL Neut % (Auto) 56.1 (50-75) % Lymph % (Auto) 33.9 (25-40) % [place] % (Auto) 7.3 (3-14) % Eos % (Auto) 2.1 (2-4) % Baso % (Auto) 0.6 (0-2) % Neut # (Auto) 3000 (2289-5472) /uL Lymph # (Auto) 1800 (2636-3836) /uL [place] # (Auto) 400 (0-900) /uL Eos # (Auto) 100 (0-450) /uL Baso # (Auto) 0 (0-100) /uL PT 10.2 (9.4-12.5) SECONDS INR 0.9 (0.9-1.3) APTT 30 (25.1-36.5) SECONDS Sodium 134 L 131 L (137-145) mmol/L Potassium 3.1 L 3.9 (3.4-5.1) mmol/L Chloride 96 L 95 L (98-107) mmol/L Carbon Dioxide 30 29 (22-32) mmol/L BUN 14 12 (7-17) mg/dL Creatinine 0.80 0.73 (0.52-1.04) mg/dL Estimated GFR > 60 > 60 (>60) mL/min BUN/Creatinine Ratio 17.5 16.4 (6-22) Glucose 106 H 105 H (70-99) mg/dL Calcium 9.7 9.4 (8.4-10.2) mg/dL Magnesium 1.8 (1.6-2.3) mg/dL Total Bilirubin 0.7 0.7 (0.2-1.3) mg/dL AST 30 33 (14-36) IU/L ALT 16 15 (<35) IU/L Alkaline Phosphatase 57 50 (38-126) U/L Total Creatine Kinase 27 L (30-135) U/L Troponin I < 0.012 (0.01-0.034) ng/mL Total Protein 8.1 7.8 (6.3-8.2) g/dL Albumin 4.6 4.6 (3.5-5.0) g/dL Globulin 3.5 3.2 (1.7-4.1) g/dL Albumin/Globulin Ratio 1.3 1.4 (1.0-2.8) Urine Color Yellow Urine Appearance Sl cloudy Urine pH 6.5 (4.5-8.0) Ur Specific [place] 1.010 (1.000-1.035) Urine Protein Negative (Negative) Urine Glucose (UA) Negative (Negative) g/dL Urine Ketones Negative (NEGATIVE) Urine Occult Blood Trace-intact (Negative) Urine Nitrate Positive H (Negative) Urine Bilirubin Negative (NEGATIVE) Urine Urobilinogen 0.2 (0.2) E.U./dL Ur Leukocyte Esterase 3+ H (NEGATIVE) Urine RBC 0-1/hpf (0-5/HPF) Urine WBC 30-100/hpf H (0-5/HPF) Ur Squamous Epith Cells 1-5 /hpf (0-5/HPF) Urine Bacteria Many (>30) H (None) Ur Culture Indicated? Specimen cultured Vol Urine Centrifuged 10ml (spun) 05/22/25 Range/Units 13:30 WBC 10.7 (4.5-11.0) X10^3/uL RBC 4.10 (4.0-5.2) X10^6/uL Hgb 12.5 (12.0-16.0) g/dL Hct 36.4 (36-46) % MCV 88.9 (80-100) fL MCH 30.6 (26-34) PG MCHC 34.4 (30-36) % RDW 13.2 (11.6-14.8) % Plt Count 281 (150-400) X10^3/uL Neut % (Auto) 74.1 (50-75) % Lymph % (Auto) 19.3 L (25-40) % [place] % (Auto) 5.8 (3-14) % Eos % (Auto) 0.4 L (2-4) % Baso % (Auto) 0.4 (0-2) % Neut # (Auto) 7900 H (4262-4068) /uL Lymph # (Auto) 2100 (6778-3440) /uL [place] # (Auto) 600 (0-900) /uL Eos # (Auto) 0 (0-450) /uL Baso # (Auto) 0 (0-100) /uL PT (9.4-12.5) SECONDS INR (0.9-1.3) APTT (25.1-36.5) SECONDS Sodium (137-145) mmol/L Potassium (3.4-5.1) mmol/L Chloride (98-107) mmol/L Carbon Dioxide (22-32) mmol/L BUN (7-17) mg/dL Creatinine (0.52-1.04) mg/dL Estimated GFR (>60) mL/min BUN/Creatinine Ratio (6-22) Glucose (70-99) mg/dL Calcium (8.4-10.2) mg/dL Magnesium (1.6-2.3) mg/dL Total Bilirubin (0.2-1.3) mg/dL AST (14-36) IU/L ALT (<35) IU/L Alkaline Phosphatase (38-126) U/L Total Creatine Kinase (30-135) U/L Troponin I (0.01-0.034) ng/mL Total Protein (6.3-8.2) g/dL Albumin (3.5-5.0) g/dL Globulin (1.7-4.1) g/dL Albumin/Globulin Ratio (1.0-2.8) Urine Color Urine Appearance Urine pH (4.5-8.0) Ur Specific [place] (1.000-1.035) Urine Protein (Negative) Urine Glucose (UA) (Negative) g/dL Urine Ketones (NEGATIVE) Urine Occult Blood (Negative) Urine Nitrate (Negative) Urine Bilirubin (NEGATIVE) Urine Urobilinogen (0.2) E.U./dL Ur Leukocyte Esterase (NEGATIVE) Urine RBC (0-5/HPF) Urine WBC (0-5/HPF) Ur Squamous Epith Cells (0-5/HPF) Urine Bacteria (None) Ur Culture Indicated? Vol Urine Centrifuged <Star Antonio DO - Last Filed: 05/21/25 08:37> Lab Data Labs: Lab Results 05/19/25 05/19/25 05/22/25 Range/Units 08:48 09:39 13:20 WBC 5.3 (4.5-11.0) X10^3/uL RBC 4.32 (4.0-5.2) X10^6/uL Hgb 13.2 (12.0-16.0) g/dL Hct 38.6 (36-46) % MCV 89.2 (80-100) fL MCH 30.5 (26-34) PG MCHC 34.2 (30-36) % RDW 13.1 (11.6-14.8) % Plt Count 281 (150-400) X10^3/uL Neut % (Auto) 56.1 (50-75) % Lymph % (Auto) 33.9 (25-40) % [place] % (Auto) 7.3 (3-14) % Eos % (Auto) 2.1 (2-4) % Baso % (Auto) 0.6 (0-2) % Neut # (Auto) 3000 (6399-2527) /uL Lymph # (Auto) 1800 (6670-2341) /uL [place] # (Auto) 400 (0-900) /uL Eos # (Auto) 100 (0-450) /uL Baso # (Auto) 0 (0-100) /uL PT 10.2 (9.4-12.5) SECONDS INR 0.9 (0.9-1.3) APTT 30 (25.1-36.5) SECONDS Sodium 134 L 131 L (137-145) mmol/L Potassium 3.1 L 3.9 (3.4-5.1) mmol/L Chloride 96 L 95 L (98-107) mmol/L Carbon Dioxide 30 29 (22-32) mmol/L BUN 14 12 (7-17) mg/dL Creatinine 0.80 0.73 (0.52-1.04) mg/dL Estimated GFR > 60 > 60 (>60) mL/min BUN/Creatinine Ratio 17.5 16.4 (6-22) Glucose 106 H 105 H (70-99) mg/dL Calcium 9.7 9.4 (8.4-10.2) mg/dL Magnesium 1.8 (1.6-2.3) mg/dL Total Bilirubin 0.7 0.7 (0.2-1.3) mg/dL AST 30 33 (14-36) IU/L ALT 16 15 (<35) IU/L Alkaline Phosphatase 57 50 (38-126) U/L Total Creatine Kinase 27 L (30-135) U/L Troponin I < 0.012 (0.01-0.034) ng/mL Total Protein 8.1 7.8 (6.3-8.2) g/dL Albumin 4.6 4.6 (3.5-5.0) g/dL Globulin 3.5 3.2 (1.7-4.1) g/dL Albumin/Globulin Ratio 1.3 1.4 (1.0-2.8) Urine Color Yellow Urine Appearance Sl cloudy Urine pH 6.5 (4.5-8.0) Ur Specific [place] 1.010 (1.000-1.035) Urine Protein Negative (Negative) Urine Glucose (UA) Negative (Negative) g/dL Urine Ketones Negative (NEGATIVE) Urine Occult Blood Trace-intact (Negative) Urine Nitrate Positive H (Negative) Urine Bilirubin Negative (NEGATIVE) Urine Urobilinogen 0.2 (0.2) E.U./dL Ur Leukocyte Esterase 3+ H (NEGATIVE) Urine RBC 0-1/hpf (0-5/HPF) Urine WBC 30-100/hpf H (0-5/HPF) Ur Squamous Epith Cells 1-5 /hpf (0-5/HPF) Urine Bacteria Many (>30) H (None) Ur Culture Indicated? Specimen cultured Vol Urine Centrifuged 10ml (spun) 05/22/25 Range/Units 13:30 WBC 10.7 (4.5-11.0) X10^3/uL RBC 4.10 (4.0-5.2) X10^6/uL Hgb 12.5 (12.0-16.0) g/dL Hct 36.4 (36-46) % MCV 88.9 (80-100) fL MCH 30.6 (26-34) PG MCHC 34.4 (30-36) % RDW 13.2 (11.6-14.8) % Plt Count 281 (150-400) X10^3/uL Neut % (Auto) 74.1 (50-75) % Lymph % (Auto) 19.3 L (25-40) % [place] % (Auto) 5.8 (3-14) % Eos % (Auto) 0.4 L (2-4) % Baso % (Auto) 0.4 (0-2) % Neut # (Auto) 7900 H (7060-9512) /uL Lymph # (Auto) 2100 (3259-0020) /uL [place] # (Auto) 600 (0-900) /uL Eos # (Auto) 0 (0-450) /uL Baso # (Auto) 0 (0-100) /uL PT (9.4-12.5) SECONDS INR (0.9-1.3) APTT (25.1-36.5) SECONDS Sodium (137-145) mmol/L Potassium (3.4-5.1) mmol/L Chloride (98-107) mmol/L Carbon Dioxide (22-32) mmol/L BUN (7-17) mg/dL Creatinine (0.52-1.04) mg/dL Estimated GFR (>60) mL/min BUN/Creatinine Ratio (6-22) Glucose (70-99) mg/dL Calcium (8.4-10.2) mg/dL Magnesium (1.6-2.3) mg/dL Total Bilirubin (0.2-1.3) mg/dL AST (14-36) IU/L ALT (<35) IU/L Alkaline Phosphatase (38-126) U/L Total Creatine Kinase (30-135) U/L Troponin I (0.01-0.034) ng/mL Total Protein (6.3-8.2) g/dL Albumin (3.5-5.0) g/dL Globulin (1.7-4.1) g/dL Albumin/Globulin Ratio (1.0-2.8) Urine Color Urine Appearance Urine pH (4.5-8.0) Ur Specific [place] (1.000-1.035) Urine Protein (Negative) Urine Glucose (UA) (Negative) g/dL Urine Ketones (NEGATIVE) Urine Occult Blood (Negative) Urine Nitrate (Negative) Urine Bilirubin (NEGATIVE) Urine Urobilinogen (0.2) E.U./dL Ur Leukocyte Esterase (NEGATIVE) Urine RBC (0-5/HPF) Urine WBC (0-5/HPF) Ur Squamous Epith Cells (0-5/HPF) Urine Bacteria (None) Ur Culture Indicated? Vol Urine Centrifuged MDM Narrative Medical decision making narrative: Patient here for off and on episodes of dizziness occipital headache pulsating sensation to the ears, feeling off balance for the past 3 or 4 weeks. Worsening in the past 4 days. No chest pain no palpitations. No prior history of heart attack strokes or diabetes. No history arrhythmia. No primary family history of stroke. Patient in no distress. Steady self gait from waiting to room 4. No recent illness. No black or bloody stools. No nausea or vomiting. No prior history of migraine headaches. No new medications. Fast exam is negative After history and exam, CT head CT angiogram head and neck EKG CBC CMP normal saline troponin urinalysis [place] Medical records reviewed: Patient is seen walk-in clinic yesterday for vertigo Differential considered: Includes but not limited to stroke TIA migraine headache vertigo Lab Test results independently reviewed as above. Pertinent findings: WBC 5.3 hemoglobin 13 hematocrit 38 INR 0.9 sodium 134 potassium 3.1 troponin less than 0.012 urinalysis positive nitrate WBC 3100 many bacteria patient has no urinary complaints Independently reviewed EKG normal sinus rhythm rate [address] elevation or depression Imaging studies independently reviewed: CT head calcification right cerebellum, CT angiogram head and neck no large vessel occlusion, there is a right cerebellar hemisphere lesion, MRI brain lesion 4th ventricle Consultations: 3:20 p.m.. Spoke with [facility] neurosurgery, dr kam, who will accept patient Re-evaluations: 3:25 p.m.. Spoke with patient and mother. The understand need for transfer. At this time uncertain etiology of MRI but neurosurgery would like her to be transferred and admitted overnight Discussion: Appropriate for transfer for higher level of care. Patient will need neurosurgical evaluation, at this time patient in no distress patient neurologically intact otherwise. Airway intact. No altered mental status Diagnosis: Ataxia 6:[address] Thayer: Sign-out to Dr Thapa, patient hemodynamically stable neurovascularly intact at this time. However patient has been accepted to [facility] through neurosurgical services. Awaiting for bed assignment. Patient and are aware. Patient may take for home meds May 20, 2025 at 7:[address] Thayer: No new events reported over night by physician or staff. Still waiting for bed assignment. 7:30 a.m.. Reviewed with patient that [facility] will be reviewing for billable bed this morning. She feels anxious and she states the Xanax helped her last night. We will order this again. 2:00 p.m.. Updated patient we are trying to reach out to [facility] for possible acceptance. 6:[address] Thayer: s/o back to dr thapa, no txr today, [facility] did call back. Level of care needs to go to [facility]. Patient is ambulatory. Not requiring DVT prophylaxis at this time. Dr. Antonio (05.21.25) 0700: Patient was signed out to me by Dr. Thapa, patient is still pending bed assignment for new intracranial mass. No events overnight will continue to monitor 0835: Did reach back out to [facility], they state that there are still no bed availability <Luis Raya MD - Last Filed: 05/22/25 15:52> Lab Data Labs: Lab Results 05/19/25 05/19/25 05/22/25 Range/Units 08:48 09:39 13:20 WBC 5.3 (4.5-11.0) X10^3/uL RBC 4.32 (4.0-5.2) X10^6/uL Hgb 13.2 (12.0-16.0) g/dL Hct 38.6 (36-46) % MCV 89.2 (80-100) fL MCH 30.5 (26-34) PG MCHC 34.2 (30-36) % RDW 13.1 (11.6-14.8) % Plt Count 281 (150-400) X10^3/uL Neut % (Auto) 56.1 (50-75) % Lymph % (Auto) 33.9 (25-40) % [place] % (Auto) 7.3 (3-14) % Eos % (Auto) 2.1 (2-4) % Baso % (Auto) 0.6 (0-2) % Neut # (Auto) 3000 (4485-5736) /uL Lymph # (Auto) 1800 (6074-0519) /uL [place] # (Auto) 400 (0-900) /uL Eos # (Auto) 100 (0-450) /uL Baso # (Auto) 0 (0-100) /uL PT 10.2 (9.4-12.5) SECONDS INR 0.9 (0.9-1.3) APTT 30 (25.1-36.5) SECONDS Sodium 134 L 131 L (137-145) mmol/L Potassium 3.1 L 3.9 (3.4-5.1) mmol/L Chloride 96 L 95 L (98-107) mmol/L Carbon Dioxide 30 29 (22-32) mmol/L BUN 14 12 (7-17) mg/dL Creatinine 0.80 0.73 (0.52-1.04) mg/dL Estimated GFR > 60 > 60 (>60) mL/min BUN/Creatinine Ratio 17.5 16.4 (6-22) Glucose 106 H 105 H (70-99) mg/dL Calcium 9.7 9.4 (8.4-10.2) mg/dL Magnesium 1.8 (1.6-2.3) mg/dL Total Bilirubin 0.7 0.7 (0.2-1.3) mg/dL AST 30 33 (14-36) IU/L ALT 16 15 (<35) IU/L Alkaline Phosphatase 57 50 (38-126) U/L Total Creatine Kinase 27 L (30-135) U/L Troponin I < 0.012 (0.01-0.034) ng/mL Total Protein 8.1 7.8 (6.3-8.2) g/dL Albumin 4.6 4.6 (3.5-5.0) g/dL Globulin 3.5 3.2 (1.7-4.1) g/dL Albumin/Globulin Ratio 1.3 1.4 (1.0-2.8) Urine Color Yellow Urine Appearance Sl cloudy Urine pH 6.5 (4.5-8.0) Ur Specific [place] 1.010 (1.000-1.035) Urine Protein Negative (Negative) Urine Glucose (UA) Negative (Negative) g/dL Urine Ketones Negative (NEGATIVE) Urine Occult Blood Trace-intact (Negative) Urine Nitrate Positive H (Negative) Urine Bilirubin Negative (NEGATIVE) Urine Urobilinogen 0.2 (0.2) E.U./dL Ur Leukocyte Esterase 3+ H (NEGATIVE) Urine RBC 0-1/hpf (0-5/HPF) Urine WBC 30-100/hpf H (0-5/HPF) Ur Squamous Epith Cells 1-5 /hpf (0-5/HPF) Urine Bacteria Many (>30) H (None) Ur Culture Indicated? Specimen cultured Vol Urine Centrifuged 10ml (spun) 05/22/25 Range/Units 13:30 WBC 10.7 (4.5-11.0) X10^3/uL RBC 4.10 (4.0-5.2) X10^6/uL Hgb 12.5 (12.0-16.0) g/dL Hct 36.4 (36-46) % MCV 88.9 (80-100) fL MCH 30.6 (26-34) PG MCHC 34.4 (30-36) % RDW 13.2 (11.6-14.8) % Plt Count 281 (150-400) X10^3/uL Neut % (Auto) 74.1 (50-75) % Lymph % (Auto) 19.3 L (25-40) % [place] % (Auto) 5.8 (3-14) % Eos % (Auto) 0.4 L (2-4) % Baso % (Auto) 0.4 (0-2) % Neut # (Auto) 7900 H (6975-4272) /uL Lymph # (Auto) 2100 (9167-7596) /uL [place] # (Auto) 600 (0-900) /uL Eos # (Auto) 0 (0-450) /uL Baso # (Auto) 0 (0-100) /uL PT (9.4-12.5) SECONDS INR (0.9-1.3) APTT (25.1-36.5) SECONDS Sodium (137-145) mmol/L Potassium (3.4-5.1) mmol/L Chloride (98-107) mmol/L Carbon Dioxide (22-32) mmol/L BUN (7-17) mg/dL Creatinine (0.52-1.04) mg/dL Estimated GFR (>60) mL/min BUN/Creatinine Ratio (6-22) Glucose (70-99) mg/dL Calcium (8.4-10.2) mg/dL Magnesium (1.6-2.3) mg/dL Total Bilirubin (0.2-1.3) mg/dL AST (14-36) IU/L ALT (<35) IU/L Alkaline Phosphatase (38-126) U/L Total Creatine Kinase (30-135) U/L Troponin I (0.01-0.034) ng/mL Total Protein (6.3-8.2) g/dL Albumin (3.5-5.0) g/dL Globulin (1.7-4.1) g/dL Albumin/Globulin Ratio (1.0-2.8) Urine Color Urine Appearance Urine pH (4.5-8.0) Ur Specific [place] (1.000-1.035) Urine Protein (Negative) Urine Glucose (UA) (Negative) g/dL Urine Ketones (NEGATIVE) Urine Occult Blood (Negative) Urine Nitrate (Negative) Urine Bilirubin (NEGATIVE) Urine Urobilinogen (0.2) E.U./dL Ur Leukocyte Esterase (NEGATIVE) Urine RBC (0-5/HPF) Urine WBC (0-5/HPF) Ur Squamous Epith Cells (0-5/HPF) Urine Bacteria (None) Ur Culture Indicated? Vol Urine Centrifuged Discharge Plan Departure Patient Disposition: [facility] Clinical Impression: Ataxia, Abnormal finding on MRI of brain Prescriptions: No Action bimatoprost 0.03 % drops with applicator 1 applic topical DAILY semaglutide (weight loss) 0.25 mg/0.5 mL pen injector 0.25 mg SUBCUT QWEEK Qty: 2 3RF Rx Instructions: administer 0.25 mg once weekly x 4 weeks; increase dose to 0.5 mg once weekly after 4 weeks methocarbamol 500 mg tablet 500 mg PO Q6H Rx Instructions: Take 1 tablet (500 mg) by mouth every 6 hours as needed for muscle spasms. ondansetron HCl 4 mg tablet 4 mg PO Q8H Patient Comments: Take 1 tablet (4 mg) by mouth every 8 hours as needed for nausea/vomiting. melatonin 3 mg tablet 3 mg PO BEDTIME PRN Rx Instructions: Take 1 tablet (3 mg) by mouth at bedtime as needed for sleep. carboxymethylcellulose sodium [Refresh Tears] 0.5 % drops EYE-BOTH Rx Instructions: Place 1 drop in each EYE every 2 hours as needed for dry eyes. bisacodyl [Dulcolax (bisacodyl)] 10 mg suppository 10 mg MI DAILY PRN Rx Instructions: Unwrap and insert 1 suppository (10 mg) rectally daily as needed for constipation (constipation). chlorpromazine 25 mg tablet 25 mg PO TID PRN Rx Instructions: Take 1 tablet (25 mg) by mouth 3 times a day as needed for hiccups for up to 7 days. bisacodyl 5 mg tablet,delayed release (DR/EC) 10 mg PO ONCE Rx Instructions: Take 2 tablets (10 mg) by mouth daily as needed for constipation for up to 10 days. oxycodone 5 mg tablet 5 mg PO Q4H PRN Patient Comments: Take 1-2 tablets (5-10 mg) by mouth every 4 hours as needed for moderate pain or severe pain. acetaminophen 325 mg capsule 650 mg PO ONCE PRN Rx Instructions: Take 2 tablets (650 mg) by mouth every 6 hours for 15 days. pantoprazole 20 mg tablet,delayed release (DR/EC) 20 mg PO DAILY Rx Instructions: Take 1 tablet (20 mg) by mouth daily on an empty stomach for 7 days. polyethylene glycol 3350 17 gram/dose powder 17 g PO DAILY Rx Instructions: Take 1 packet (17 g) by mouth daily. Dissolve in 4-8 ounce water. senna 8.6 mg capsule 8.6 mg PO BID Patient Comments: Take 2 tablets (17.2 mg) by mouth 2 times a day. potassium chloride 20 mEq tablet extended release 20 meq PO DAILY Thyroid Support-Pure PO Vitamin E tablet PO valsartan-hydrochlorothiazide 320-25 mg tablet 1 tab PO DAILY Qty: 90 3RF Referrals: Blaine Masterson ARNP [Primary Care Provider, Medical] ED Sign-out <Praneeth Thapa MD - Last Filed: 05/19/25 19:21> Sign Out Provider Sign Out Attestation: TERRY: I assumed care of this pt at 1900. She was alreadya ccepted to and awaiting bed assignment/transport. RN informed me of UA concerning for UTI. Started on keflex 500 BID.
[2025-05-19 09:12] LABS: Add Manual Diff / Slide Review NO; Hematocrit 38.6 % (36-46); Hemoglobin 13.2 g/dL (12.0-16.0); Lymphocytes Absolute Auto 1800 /uL (1100-4500); Mean Corpuscular HGB Conc 34.2 % (30-36); Mean Corpuscular Hemoglobin 30.5 PG (26-34); Mean Corpuscular Volume 89.2 fL (80-100); Platelet Count 281 X10^3/uL (150-400)
[2025-05-19 09:14] LABS: INR 0.9 (0.9-1.3); Prothrombin Time 10.2 SECONDS (9.4-12.5)
[2025-05-19 09:16] LABS: PTT Partial Thromboplastin Tim 30 SECONDS (25.1-36.5)
[2025-05-19 09:17] LABS: Alanine Aminotransferase 16 IU/L (<35); Albumin 4.6 g/dL (3.5-5.0); Albumin Globulin Ratio 1.3 (1.0-2.8); Alkaline Phosphatase 57 U/L (38-126); Blood Urea Nitrogen 14 mg/dL (7-17); Calcium 9.7 mg/dL (8.4-10.2); Carbon Dioxide 30 mmol/L (22-32); Chloride 96 mmol/L (98-107); Creatine Kinase 27 U/L (30-135); Estimated Glomerular Filt Rate > 60 mL/min (>60); Globulin 3.5 g/dL (1.7-4.1); Glucose 106 mg/dL (70-99); HEMOLYSIS < 15 (0-50); Potassium 3.1 mmol/L (3.4-5.1); Sodium 134 mmol/L (137-145); Total Protein 8.1 g/dL (6.3-8.2)
[2025-05-19] MEDS: SODIUM CHLORIDE 0.9% 1,000 ML 1000 ML IV (09:26)
[2025-05-19 09:29] LABS: Troponin I < 0.012 ng/mL (0.01-0.034)
--- NOTE | 2025-05-19 09:45 | DI.MRI.S_ITS ---
PROCEDURE: MR HEAD/BRAIN WO/W CON INDICATIONS: Dizziness/ataxia/possible stroke TECHNIQUE: Noncontrast axial T1 spin echo, axial T2 fast spin echo, sagittal and axial FLAIR, coronal T2 fast spin echo, axial gradient echo, axial diffusion and ADC through the brain. After the administration of contrast, axial and coronal and sagittal 3D VIBE or T1 spin echo with fat saturation through the brain. COMPARISON: [facility], CT, CT ANGIO HEAD AND NECK, 05/19/2025, 9:10. [facility], CT, CT HEAD/BRAIN WO CON, 05/19/2025, 9:10. FINDINGS: Image quality: Excellent. CSF Spaces: Basal cisterns are patent. No extra-axial fluid collections. Within the inferior aspect of the 4th ventricle, extending through the foramen magnum and into the upper cervical cord central canal, there is a heterogeneously enhancing high FLAIR signal intensity focus measuring 30 mm anteroposterior by 45 mm craniocaudal by 30 mm transverse. This lesion demonstrates several low gradient echo signal intensity foci, largest of which is in the right paramedian aspect of the 4th ventricle, corresponding to the abnormality seen by CT. Brain: No midline shift. 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 No acute intracranial bleeds or masses. No abnormal intracranial enhancement. The brainstem appears normal. Diffusion-weighted images demonstrate no acute infarct. No chronic ischemic insults. Normal intravascular flow voids are present. Skull and face: Calvarial marrow is normal in signal. Orbits appear normal. Sinuses: Sinuses and mastoids appear clear. IMPRESSION: 1. Lesion as described above within the 4th ventricle and upper cervical central canal, most suggestive of an ependymoma. More aggressive etiologies such as astrocytoma and glioblastoma cannot be excluded. There are associated calcifications and/or chronic hemorrhagic products within this lesion, with no evidence of acute hemorrhage. There is associated compression of the medulla. Dictated by: Jadon Thompson M.D. on 05/19/2025 at 10:59 Approved by: Jadon Thompson M.D. on 05/19/2025 at 11:13
[2025-05-19 09:48] LABS: Appearance Urine UA SL CLOUDY; Bilirubin Urine UA NEGATIVE (NEGATIVE); Color Urine UA YELLOW; Glucose Urine UA NEGATIVE (Negative); Ketones Urine UA NEGATIVE (NEGATIVE); Leukocyte Esterase Urine UA 3+ (NEGATIVE); Nitrite Urine UA POSITIVE (Negative); Occult Blood Urine UA TRACE-INTACT (Negative); Protein Urine UA NEGATIVE (Negative); Specific Gravity Urine UA 1.010 (1.000-1.035); Urobilinogen Urine UA 0.2 E.U./dL (0.2)
[2025-05-19 09:49] LABS: pH Urine UA 6.5 (4.5-8.0)
[2025-05-19 09:51] LABS: Culture Indicated Urine Specimen Cultured
[2025-05-19] MEDS: ACETAMINOPHEN 325 MG TABLET 975 MG PO (14:40)
[2025-05-20] VITALS (7 sets, daily range): BP systolic 112–124; BP diastolic 72–86; PULSE 81–85; RESP 16–20; TEMP 36.4; O2SAT 96–100
--- NOTE | 2025-05-20 07:01 | PC.NURSE ---
No change in pt status throughout shift. Pt A&Ox4, ambulates independently.
--- NOTE | 2025-05-20 07:35 | PC.NURSE ---
Assumed care of pt at 0700. Pt a&ox4 but does express having significant anxiety and that she is feeling off. Ambulatory & independent with ADLs. Denies cp, sob, n/v. Dr Thayer notified of pt status and to order medication for anxiety.
[2025-05-20] MEDS: CEFDINIR 300 MG CAPSULE PO ×2 (08:48→21:15)
[2025-05-20] MEDS: ACETAMINOPHEN 325 MG TABLET 975 MG PO ×2 (10:40→18:21)
--- NOTE | 2025-05-20 11:38 | PC.NURSE ---
Pt states that anxiety and VALLE have resolved. A&Ox4 and tolerating PO intake. Denies sob, cp, n/v. Ambulatory and independent with all ADLs.
[2025-05-21] VITALS (12 sets, daily range): BP systolic 124–163; BP diastolic 73–91; PULSE 73–90; RESP 16–18; TEMP 36.3; O2SAT 86–100
--- NOTE | 2025-05-21 02:36 | PC.NURSE ---
No change in pt status. Pt A&Ox4, Independent to bathroom, will continue to monitor vitals Q4hrs. Pt did get anxious about wait time, gave medications per pt request and provider verbal approval.
--- NOTE | 2025-05-21 05:19 | PC.NURSE ---
OBSTETRIC ASSISTANT note: 05/20/252102 spoke to /[facility] spoke with Joycelyn. Asked about bed placement. Joycelyn said they currently had no beds and no anticipated discharges overnight. Told her to please call us when they do and thanked her for her help.
[2025-05-21] MEDS: ACETAMINOPHEN 325 MG TABLET 975 MG PO (07:55)
[2025-05-21] MEDS: CEFDINIR 300 MG CAPSULE PO ×2 (08:03→21:37)
--- NOTE | 2025-05-21 08:31 | PC.NURSE ---
Addendum entered by Alma Rosa Gongora CNA 05/21/25 19:09: called @1411, spoke with Jerald, still waiting on a bed assignment Original Note: 0828, called for updates, spoke with Jerald at the transfer station. They are still waiting for bed assigment.
[2025-05-21] MEDS: MORPHINE 4 MG/ML INJ IV (14:43)
--- NOTE | 2025-05-21 20:14 | PC.NURSE ---
LUMBER SCALER note: 05/21/251954 called [facility], spoke to Ken. He would call us back regarding bed placement, he would check in with patient flow. 05/21/252010 Ken from [facility] called back, no space tonight but hopefully in the morning after 0800 we will get a bed. So to check in tomorrow.
[2025-05-22] VITALS (9 sets, daily range): BP systolic 84–133; BP diastolic 53–95; PULSE 78–91; RESP 16–20; TEMP 36.8–37.1; O2SAT 97–100
--- NOTE | 2025-05-22 08:30 | PC.NURSE ---
RODDING ANODE WORKER Note: Called [facility] Transfer Center and spoke with Sandra. [facility] is hopeful to have a bed assignment [id number] today.
--- NOTE | 2025-05-22 08:30 | PC.NURSE ---
POPCORN VENDOR Note: Called / Transfer Center and spoke with Sandra. They are hopeful to have bed assigned between [id number] today.
[2025-05-22] MEDS: CEFDINIR 300 MG CAPSULE PO (08:55)
[2025-05-22] MEDS: ACETAMINOPHEN 325 MG TABLET 975 MG PO ×2 (08:56→19:58)
--- NOTE | 2025-05-22 09:50 | PC.NURSE ---
Patient got up and independently ambulated to the bathroom.
[2025-05-22 13:30] LABS: Add Manual Diff / Slide Review NO; Hematocrit 36.4 % (36-46); Hemoglobin 12.5 g/dL (12.0-16.0); Lymphocytes Absolute Auto 2100 /uL (1100-4500); Mean Corpuscular HGB Conc 34.4 % (30-36); Mean Corpuscular Hemoglobin 30.6 PG (26-34); Mean Corpuscular Volume 88.9 fL (80-100); Platelet Count 281 X10^3/uL (150-400)
[2025-05-22 13:44] LABS: Alanine Aminotransferase 15 IU/L (<35); Albumin 4.6 g/dL (3.5-5.0); Albumin Globulin Ratio 1.4 (1.0-2.8); Alkaline Phosphatase 50 U/L (38-126); Blood Urea Nitrogen 12 mg/dL (7-17); Calcium 9.4 mg/dL (8.4-10.2); Carbon Dioxide 29 mmol/L (22-32); Chloride 95 mmol/L (98-107); Estimated Glomerular Filt Rate > 60 mL/min (>60); Globulin 3.2 g/dL (1.7-4.1); Glucose 105 mg/dL (70-99); HEMOLYSIS 44 (0-50); Magnesium 1.8 mg/dL (1.6-2.3); Potassium 3.9 mmol/L (3.4-5.1); Sodium 131 mmol/L (137-145); Total Protein 7.8 g/dL (6.3-8.2)
[2025-05-22] MEDS: SODIUM CHLORIDE 0.9% 1,000 ML 500 ML IV (14:04)
--- NOTE | 2025-05-22 15:45 | PC.NURSE ---
[facility] Note: / called with bed assignment. Dr. Hernández spoke with Dr. Raya. Transfer center advised room was ready an [facility], [address]. Nursing report number [phone]. [facility] BLS transport ETA to [facility] [address]. / Transfer Center called and advised of ETA to [facility].
--- NOTE | 2025-05-22 16:08 | CM.SWNOTE ---
ED PRINCIPAL ARCHITECTURAL FIRM Note Patient is 50 y/o female who presents to the ED 3 days ago due to concern for episodes of dizziness, occipital headaches and feeling off balance. Patient has been boarding in the ED the last 3 days awaiting transfer to for higher level of care, patient has been accepted but has been awaiting a bed. Patient's MRI show signs of lesion on the brain. Patient's PCP is ALEX Cantu, patient has [employer] insurance. PRINCIPAL ARCHITECTURAL FIRM receives consult due to concern waiting for transfer boarding in the ED the last 3+ days and coping with the news of new medical diagnosis. PRINCIPAL ARCHITECTURAL FIRM enters room to meet with patient, present in room is patient's spouse, son and friend. Patient presents as A/Ox4. Patient resides in [place] with family and has several supports. 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 Patient asks questions about next steps in her care plan and PRINCIPAL ARCHITECTURAL FIRM discusses that patient will receive care from the neurologist team at . PRINCIPAL ARCHITECTURAL FIRM encourages patient to discuss treatment plan and listen to recommendations and make informed decisions about plan of care. PRINCIPAL ARCHITECTURAL FIRM expresses empathy about patient's long wait time in ED awaiting transfer. Patient endorses interest in seeking MH provider and states she plans to reach out to her employers' EAP program. PRINCIPAL ARCHITECTURAL FIRM discusses FMLA and plans to provide information about the process. Patient states she has appt with PCP on 06/01/25 but would like to see her sooner if needed. Patient's family asks about places to stay while patient is at the hospital. PRINCIPAL ARCHITECTURAL FIRM provides patient with lists of MH providers that accept her insurance, FMLA information and lists of lodging options near hospital. PRINCIPAL ARCHITECTURAL FIRM reaches out to patient's PCP clinic regarding her presentation to the ED and pending transfer to . It is reported at 1545 that has a bed for patient at the [facility] in [place]. PRINCIPAL ARCHITECTURAL FIRM provides patient with contact information and address of the hospital to provide to family. Plan: patient to transfer to [facility] via BLS this evening for higher level of care. ELIAZAR BowlingSW
--- NOTE | 2025-05-22 18:30 | PC.NURSE ---
Patient is requesting to hold the Xanax ordered until she is about to leave on transport.
--- NOTE | 2025-05-22 19:36 | PC.NURSE ---
This RN called [facility] 4NE [phone] and gave verbal report on this patient to SURAJ Gibbs resource nurse for this floor. This RN answered all questions that were asked and gave this department return phone number. This RN asked about visiting hours and gave family that information. Patient has their Valsartan/Hydrocholorthiazide medication was returned to her.
--- NOTE | 2025-05-22 20:00 | PC.NURSE ---
This RN gave [facility] EMT Benigno report and answered all questions that were asked. That RN gave them the unit phone number that they are going too as well as this units phone number.
== END 2025-05-22 20:04 | disposition short-term general hospital (02) ==
PROVIDERS: Emergency Medicine; Emergency Provider Family Medicine; PCP Registered Nurse Diabetes Educator
DX: R27.0 Ataxia, unspecified (principal); R90.89 Other abnormal findings on diagnostic imaging of central nervous system; R51.9 Headache, unspecified; H53.8 Other visual disturbances
CPT/HCPCS: 70450; 70496; 70498; 70553; 80053; 81001; 82550; 83735; 84484; 85025; 85610; 85730; 87077; 87086; 87186; 93005; 96361; 96374; 99284; A9579; J2270; Q9967